=== PATIENT | female | born 1995 | race Caucasian/White ===

== ENCOUNTER 2019-03-02 22:38 | Emergency (ER) | payer OTHER ==
[~2019-03-02] VITALS: Ht 157.5 cm; Wt 68.0 kg
[2019-03-03 00:16] VITALS: BP 118/74
== END 2019-03-03 00:39 | disposition home or self-care (01) ==
LOC: ER 22:40
DX: R07.89 Other chest pain (principal)
CPT/HCPCS: 99281

== ENCOUNTER 2019-04-10 15:07 | Emergency (ER) | payer OTHER ==
[~2019-04-10] VITALS: Ht 160 cm; Wt 68.0 kg
[2019-04-10] MEDS ORDERED: ondansetron 4mg rapidly disintigrating tab PO ONE (15:55)
[2019-04-10] MEDS ORDERED: pantoprazole 40mg Tablet.DR PO SCH (15:55)
[2019-04-10] MEDS ORDERED: LIDOcaine Viscous 15ml cup MM PRN (15:55)
--- NOTE | 2019-04-10 16:16 | NUR ---
Pt gave stool sample, appears to be to formed to run a c-diff panel, provider to be notified.
[2019-04-10] MEDS ORDERED: DIPH-186 PO (17:09)
[2019-04-10 17:14] LABS: URINE HCG NEGATIVE (NEG)
[2019-04-10 17:18] LABS: CLARITY,URINE CLEAR (Clear); COLOR,URINE STRAW (Yellow); GLUCOSE, URINE NEGATIVE (Neg); KETONES,URINE NEGATIVE (Neg); LEUKOCYTE ESTERASE ,URINE NEGATIVE (Neg); NITRITES, URINE NEGATIVE (Neg); OCCULT BLOOD,URINE NEGATIVE (Neg); PH,URINE 6.5 (4.8-8.0); PROTEIN,URINE NEGATIVE (Neg); UROBILINOGEN,URINE 0.2 E.U/dL (0.2-1.0)
[2019-04-10 17:24] LABS: UA COLLECTION TYPE CLN CATCH MIDSTREAM
[2019-04-10 17:51] VITALS: BP 116/65
== END 2019-04-10 17:52 | disposition home or self-care (01) ==
LOC: ER 15:08
DX: K59.1 Functional diarrhea (principal); R10.84 Generalized abdominal pain; R10.13 Epigastric pain
CPT/HCPCS: 81003; 81025; 99284

== ENCOUNTER 2019-06-11 13:26 | Emergency (ER) | payer MEDICAID ==
[~2019-06-11] VITALS: Ht 157.5 cm; Wt 71.1 kg
[~2019-06-11 13:26] MED LIST: DIPH-186 PO
[2019-06-11 13:59] LABS: BASOPHILS # (AUTO) 0.1 X10'3 (0-0.2); BASOPHILS % (AUTO) 0.6 % (0-1); EOSINOPHILS # (AUTO) 1.1 X10'3 (0-0.9); EOSINOPHILS % (AUTO) 10.7 % (0-6); HEMATOCRIT 42.4 % (35.0-45.0); HEMOGLOBIN 14.1 g/dl (12.0-16.0); LYMPHOCYTES # (AUTO) 2.1 X10'3 (1.1-4.8); LYMPHOCYTES % (AUTO) 19.5 % (21-51); MEAN CORPUSCULAR HEMOGLOBIN 31.5 PG (27.0-31.0); MEAN CORPUSCULAR HGB CONC 33.3 g/dL (33.0-36.5); MEAN CORPUSCULAR VOLUME 94.6 FL (78-98); MEAN PLATELET VOLUME 8.9 FL (7.4-10.4); MONOCYTES # (AUTO) 0.7 X10'3 (0-0.9); MONOCYTES % (AUTO) 6.2 % (2-12); NEUTROPHILS # (AUTO) 6.8 X10'3 (1.8-7.7); PLATELET COUNT 272 X10'3 (140-440); RED BLOOD COUNT 4.49 X10'6 (4.20-5.60); RED CELL DISTRIBUTION WIDTH 12.5 % (11.5-14.5); WHITE BLOOD COUNT 10.7 X10'3 (4.5-11.0)
[2019-06-11 14:01] LABS: CLARITY,URINE CLEAR (Clear); COLOR,URINE STRAW (Yellow); GLUCOSE, URINE NEGATIVE (Neg); KETONES,URINE NEGATIVE (Neg); LEUKOCYTE ESTERASE ,URINE NEGATIVE (Neg); NITRITES, URINE NEGATIVE (Neg); OCCULT BLOOD,URINE NEGATIVE (Neg); PH,URINE 6.5 (4.8-8.0); PROTEIN,URINE NEGATIVE (Neg); UROBILINOGEN,URINE 0.2 E.U/dL (0.2-1.0)
[2019-06-11 14:02] LABS: URINE HCG NEGATIVE (NEG)
[2019-06-11 14:08] LABS: UA COLLECTION TYPE CLN CATCH MIDSTREAM
[2019-06-11 14:13] LABS: ALANINE AMINOTRANSFERASE 16 U/L (12-78); ALBUMIN 4.1 G/DL (3.4-5.0); ALBUMIN/GLOBULIN RATIO 1.2 (1.1-1.5); ALKALINE PHOSPHATASE 71 IU/L (46-116); AMYLASE 82 U/L (25-115); ANION GAP 5 (8-16); ASPARTATE AMINO TRANSFERASE 19 U/L (10-37); BILIRUBIN,TOTAL 0.3 MG/DL (0.1-1.0); BLOOD UREA NITROGEN 10 MG/DL (7-18); BUN/CREATININE RATIO 14.1 (6.6-38.0); CHLORIDE 106 MMOL/L (99-107); CREATININE 0.71 MG/DL (0.40-0.90); GLUCOSE 100 MG/DL (70-104); LIPASE 84 U/L (73-393); POTASSIUM 4.1 MMOL/L (3.5-5.1); SODIUM 141 MMOL/L (135-145); TOTAL CARBON DIOXIDE 30.5 MMOL/L (24-32); TOTAL PROTEIN 7.5 G/DL (6.4-8.2); eGFR > 90 ML/MIN
[2019-06-11] MEDS ORDERED: LIDOcaine Viscous 15ml cup MM STA (14:36)
[2019-06-11] MEDS ORDERED: mag hydrox/Alum hydrox/simeth 30ml oral suspension PO ONE (14:40)
[2019-06-11] MEDS ORDERED: diphenhydrAMINE 25 MG/10 ML UD oral solution PO ONE (14:40)
[2019-06-11 14:49] VITALS: BP 116/61
--- NOTE | 2019-06-11 14:53 | NUR ---
US AT BEDSIDE
[2019-06-11] MEDS ORDERED: MAG355OR18 PO (15:22)
== END 2019-06-11 15:38 | disposition home or self-care (01) ==
LOC: ER 13:27
DX: R10.11 Right upper quadrant pain (principal); Z79.899 Other long term (current) drug therapy
CPT/HCPCS: 36415; 76700; 80053; 81003; 81025; 82150; 83690; 85025; 99284; Q0163